=== PATIENT | female | born 1995 | race Caucasian/White ===

== ENCOUNTER 2023-11-14 13:34 | Emergency (ER) | payer SELFPAY ==
[2023-11-14 14:11] LABS: APPEARANCE,URINE CLEAR; BILIRUBIN,URINE NEGATIVE (NEGATIVE); COLOR,URINE YELLOW; GLUCOSE,URINE NEGATIVE (NEGATIVE); KETONES,URINE NEGATIVE (NEGATIVE); LEUKOCYTE ESTERASE,URINE NEGATIVE (NEGATIVE); NITRITE,URINE NEGATIVE (NEGATIVE); OCCULT BLOOD,URINE SMALL (NEGATIVE); PROTEIN,URINE NEGATIVE (NEGATIVE); UROBILINOGEN,URINE 0.2 EU/dL (<2.0)
[2023-11-14 14:14] LABS: BACTERIA,URINE 1+ (NEGATIVE); EPITHELIAL CELLS,URINE MODERATE (NONE-FEW); WBC,URINE 0-2 (0-5/HPF)
[2023-11-14 15:23] LABS: BASOPHILS ABSOLUTE AUTO 0.04 K/uL (0.00-0.20); BASOPHILS PERCENT AUTO 0.7 % (0.0-1.0); EOSINOPHILS ABSOLUTE AUTO 0.12 K/uL (0.00-0.45); EOSINOPHILS PERCENT AUTO 2.2 % (0.0-6.0); HEMATOCRIT 40.4 % (37.0-47.0); HEMOGLOBIN 13.8 g/dL (12.0-16.0); IMMATURE GRAN ABSOLUTE AUTO 0.01 K/uL (0.00-0.05); IMMATURE GRAN PERCENT AUTO 0.2 % (0.0-0.4); LYMPHOCYTES ABSOLUTE AUTO 2.11 K/uL (1.00-4.80); LYMPHOCYTES PERCENT AUTO 39.3 % (24.0-44.0); MEAN CORPUSCULAR HEMOGLOBIN 30.7 pg (28.0-32.0); MEAN CORPUSCULAR HGB CONC 34.2 g/dL (32.0-36.0); MEAN CORPUSCULAR VOLUME 89.8 fL (83.0-99.0); MEAN PLATELET VOLUME 8.8 fL (9.4-12.3); MONOCYTES ABSOLUTE AUTO 0.24 K/uL (0.00-0.80); MONOCYTES PERCENT AUTO 4.5 % (0.0-8.0); NEUTROPHILS ABSOLUTE AUTO 2.85 K/uL (1.80-7.70); NEUTROPHILS PERCENT AUTO 53.1 % (41.0-71.0); PLATELET COUNT,PLT 231 K/uL (150-400); WHITE BLOOD CELL COUNT,WBC 5.37 K/uL (3.9-11.3)
[2023-11-14 15:45] LABS: ALBUMIN 3.9 g/dL (3.4-5.0); BILIRUBIN TOTAL 0.3 mg/dL (0.2-1.0); CALCIUM 9.2 mg/dL (8.5-10.1); CARBON DIOXIDE,CO2 26.8 mmol/L (21.0-32.0); EST CRCL DRUG DOSING (CG) 82.18 mL/min; POTASSIUM,K 3.8 mmol/L (3.5-5.1); PROTEIN TOTAL,TP 7.7 g/dL (6.4-8.2)
== END 2023-11-14 16:08 | disposition home or self-care (01) ==
LOC: MW.ED 13:34
DX: N92.1 Excessive and frequent menstruation with irregular cycle (principal); Z88.2 Allergy status to sulfonamides
CPT/HCPCS: 36415; 80053; 81001; 81025; 85025; 99282; 99284

== ENCOUNTER 2024-08-26 11:31 | Inpatient (IN) | payer BC ==
[2024-08-26] MEDS ORDERED: Lidocaine 1% 50 ML MDV INJECT PRN (13:27)
[2024-08-26] MEDS ORDERED: Sodium Chloride 0.9% 10 ML Syringe FLUSH PRN (13:27)
[2024-08-26] MEDS ORDERED: Sodium Chloride 0.9% 2.5 ML Syringe FLUSH PRN (13:27)
[2024-08-26] MEDS ORDERED: Misoprostol 200 MCG Tab PO PRN (13:27)
[2024-08-26] MEDS ORDERED: Water For Irrigation,Sterile 1,000 ML Container IRR PRN (13:27)
[2024-08-26] MEDS ORDERED: Carboprost Tromethamine 250 MCG/1 mL Vial IM PRN (13:27)
[2024-08-26] MEDS ORDERED: Sodium Chloride 0.9% 20 ML SDV IV PRN (13:27)
[2024-08-26] MEDS ORDERED: Methylergonovine 0.2 MG/1 ML Amp IM PRN (13:27)
[2024-08-26] MEDS ORDERED: Butorphanol 2 MG/ML SDV IVPUSH PRN (13:27)
[2024-08-26] MEDS ORDERED: Oxytocin/0.9 % Sodium Chloride 30 UNIT/500 ML BAG IV SCH (13:30)
[2024-08-26] MEDS ORDERED: Terbutaline 1 MG/ML SDV SUBCUT PRN (13:31)
[2024-08-26 13:36] LABS: HEMOGLOBIN 13.1 g/dL (12.0-16.0); MEAN CORPUSCULAR HEMOGLOBIN 29.8 pg (28.0-32.0); MEAN CORPUSCULAR HGB CONC 34.5 g/dL (32.0-36.0); MEAN CORPUSCULAR VOLUME 86.6 fL (83.0-99.0); MEAN PLATELET VOLUME 10.2 fL (9.4-12.3); PLATELET COUNT,PLT 196 K/uL (150-400); RED BLOOD CELL COUNT 4.39 M/uL (4.10-5.30); WHITE BLOOD CELL COUNT,WBC 9.66 K/uL (3.9-11.3)
[2024-08-26] MEDS: Misoprostol 25 MCG (1/4 of 100 MCG) Tab VAG PRN ×2 (13:58→18:46)
[2024-08-26] MEDS: Lactated Ringers 1,000 ML IV SCH (22:35)
[2024-08-26] MEDS ORDERED: Bupivacaine 0.5% 10 ML SDV ONE (22:55)
[2024-08-26] MEDS ORDERED: Phenylephrine HCl In 0.9% NaCl 1 MG/10 ML Syringe ONE (22:55)
[2024-08-26] MEDS ORDERED: Ropivacaine HCl/PF 200 ML ONE (22:55)
[2024-08-26] MEDS: Ropivacaine HCl/PF 400 MG in Premix Bag 1 BAG EPIDUR SCH (23:18)
[2024-08-26] MEDS ORDERED: ePHEDrine 50 MG/ML SDV IVPUSH PRN (23:21)
[2024-08-26] MEDS ORDERED: Bupivacaine 0.5% 10 ML SDV INJECT ONE (23:22)
[2024-08-26] MEDS ORDERED: ePHEDrine 50 MG/ML SDV IM PRN (23:22)
[2024-08-26] MEDS ORDERED: dexmedeTOMIDine HCl 200 MCG/2 ML SDV EPIDUR SCH (23:30)
[2024-08-27] MEDS: Phenylephrine HCl In 0.9% NaCl 1 MG/10 ML Syringe IVPUSH PRN (01:31)
[2024-08-27] MEDS: Oxytocin/0.9 % Sodium Chloride 30 UNIT/500 ML BAG IV SCH (04:00)
[2024-08-27] MEDS ORDERED: Lanolin 100% Cream 7 GM Tube TOP PRN (12:16)
[2024-08-27] MEDS ORDERED: Methylergonovine 0.2 MG/1 ML Amp IM PRN (12:16)
[2024-08-27] MEDS ORDERED: Misoprostol 200 MCG Tab PO PRN (12:16)
[2024-08-27] MEDS ORDERED: Docusate Sodium 100 MG Cap PO PRN (12:16)
[2024-08-27] MEDS ORDERED: Oxytocin/0.9 % Sodium Chloride 30 UNIT/500 ML BAG IV SCH (12:30)
[2024-08-27 13:24] LABS: PH,UMBILICAL ARTERIAL 7.228 (7.18-7.38); PH,UMBILICAL VENOUS 7.334 (7.25-7.45)
[2024-08-27] MEDS: Benzocaine/Menthol 20%-0.5% Spray 78 GM Cannister TOP PRN (14:42)
[2024-08-27] MEDS: Witch Hazel Medicated Pads 40/Jar TOP PRN (14:42)
[2024-08-27] MEDS: Ibuprofen 800 MG Tab PO PRN (14:42)
[2024-08-27] MEDS: Acetaminophen 500 MG Tab PO PRN (20:05)
[2024-08-28 07:30] LABS: HEMATOCRIT 32.6 % (37.0-47.0); HEMOGLOBIN 11.1 g/dL (12.0-16.0)
== END 2024-08-28 16:30 | disposition home or self-care (01) | DRG 560 ==
LOC: MW.OBCHECK 11:31 → MW.OB 11:32 → MW.OBCHECK 13:26 → MW.OB 13:27 → OBSVTOIN 08-27 12:16 → MW.OB 08-27 15:20
PROVIDERS: ADMIT Obstetrics & Gynecology; ATTEND Obstetrics & Gynecology
PROC: 10E0XZZ Delivery of Products of Conception, External Approach (ICD-10-PCS; principal; 2024-08-27)
PROC: 3E0P7VZ Introduction of Hormone into Female Reproductive, Via Natural or Artificial Opening (ICD-10-PCS; 2024-08-27)
PROC: 3E033VJ Introduction of Other Hormone into Peripheral Vein, Percutaneous Approach (ICD-10-PCS; 2024-08-27)
PROC: 0KQM0ZZ Repair Perineum Muscle, Open Approach (ICD-10-PCS; 2024-08-27)
PROC: 3E0R3BZ Introduction of Anesthetic Agent into Spinal Canal, Percutaneous Approach (ICD-10-PCS; 2024-08-27)
PROC: 00HU33Z Insertion of Infusion Device into Spinal Canal, Percutaneous Approach (ICD-10-PCS; 2024-08-27)
DX: O48.0 Post-term pregnancy (principal); Z37.0 Single live birth; O70.1 Second degree perineal laceration during delivery; Z3A.41 41 weeks gestation of pregnancy; Z86.16 Personal history of COVID-19
CPT/HCPCS: 01967; 36415; 51702; 59025; 59409; 82803; 85014; 85018; 85027; 86592; 86850; 86900; 86901; A9270-GY; J0665; J2371; J2590; J2795; J7120